=== PATIENT | female | born 1950 | race Caucasian/White ===

== ENCOUNTER → 2019-03-13 | Outpatient (CLI) | payer OTHER ==
[~2019-03-13] VITALS: Ht 165.1 cm; Wt 53.5 kg
[~2019-03-13] MED LIST: CALCIUM 500 +1 EACH PO; CLARITIN10 MG PO; COZAAR 50 MG TA50 M1 PO; FLONASE 0.05%50 MCG NASAL; FOSAMAX 70 MG T70 MG PO; MOBIC15 MG PO; SIMVASTATIN40 MG PO; SYNTHROID50 MCG PO; TRAZODONE HCL50 MG PO; VITAMIN D1000 UNI1 PO
[2019-03-13 08:57] VITALS: BP 151/83
[2019-03-13 08:58] LABS: HEMATOCRIT 37.7 % (37.0-47.0); HEMOGLOBIN 12.7 gm/dL (12.0-15.0); MCH 30.8 pg (26.0-34.0); MCHC 33.7 g/dL (28.0-37.0); MCV 91.5 fL (80.0-100.0); RBC 4.12 mil/uL (4.20-5.00); RDW 13.3 % (10.5-14.5); WBC 8.8 thou/uL (4.0-11.0)
[2019-03-13 09:07] LABS: CALCIUM 8.9 mg/dL (8.5-10.1); CREATININE 0.9 mg/dL (0.6-1.0); POTASSIUM 3.3 mmol/L (3.5-5.1)
--- NOTE | 2019-03-13 16:49 | EKG ---
[address] [address] ELECTROCARDIOGRAM REPORT Name: KALPESH ZAPATA Room #: REG SREEKANTH Parson#: [id number] Admission: 03/13/19 Attend Phys: Ruben Shaver Discharge: Date of : 52 Report #: [id number] THIS REPORT FOR: //name// [facility] Test Date: 2019-03-13 Test Time: 08:50:00 Pat Name: KALPESH ZAPATA Department: Room: Gender: F Cras: JESUS : 1950 Requested By: Ruben Shaver Order Number: [id number] MD: Ruben Shaver Measurements Intervals [place] Rate: 77 P: 81 MT: 137 QRS: 66 QRSD: 87 T: 53 QT: 384 QTc: 435 Interpretive Statements Sinus rhythm left atrial enlargement Nonspecific ST-T wave changes No previous ECG available for comparison Electronically Signed On 03-13-2019 16:49:40 CDT by Ruben Shaver [email or web address] <ELECTRONICALLY SIGNED> By: Ruben Shaver MD 03/13/19 1649 0850 0850 Ruben Shaver MD /ARACELIS
--- NOTE | 2019-03-14 10:53 | CATHLAB ---
[facility] [address] [place] [address] INVASIVE PROCEDURE REPORT Name: MICHELE ZAPATALIS Room #: REG Blank#: [id number] Admission: 03/13/19 Attend Phys: Ruben Cruz Discharge: Date of : 52 Report #: [id number] THIS REPORT FOR: //name// APPROVED REPORT Study performed: 03/13/2019 10:09:08 Patient Details Patient Status: Out-Patient Room #: The patient is a 68 year-old female Event Personnel Ruben Shaver Tool Clerk, PATTI ELLER Paschal, Ja'net RTR Scrub, Saúl Robles Monitor Procedures Performed Left Heart Cath w/or w/o Coronaries [id number] [facility], supervision of conscious sedation Indication Positive stress test, Chest pain Procedure Narrative The Right Groin^ was infiltrated with 1% Lidocaine subcutaneous anesthesia. A PINNACLE 4FR Sheath #[id number] sheath was inserted into the RFA^. Coronary angiography was performed using coronary diagnostic catheters. The right coronary system was accessed and visualized with a JR4 catheter. The left coronary system was accessed and visualized with a JL4 catheter. The left ventricle was accessed and visualized with a PIGTAIL catheter. Left ventricular/Aortic Valve gradient assessed via catheter pullback. Hemostasis was obtained with manual pressure following sheath removal without any complications. There was no hematoma. Intraoperative Conscious Sedation Sedation start time: 12.11 Case end Time: 33 Fluoro Time: 1.58 minutes Dose: DAP 664.00 cGycm2 93 mGy Contrast Type and Amount: Omnipaque 50 ml Coronary Angiography The patient's coronary anatomy is right dominant. [facility] [address] [place] [address] INVASIVE PROCEDURE REPORT Name: KALPESH ZAPATA Room #: REG CL Blank#: [id number] Admission: 03/13/19 Attend Phys: Ruben Cruz Discharge: Date of : 52 Report #: [id number] Diagnostic Cath Left Main Normal origin and caliber bifurcates that anterior descending left circumflex. Mild distal tapering and distal calcification noted but no obstructive lesions present LAD Moderate to small caliber type II vessel which courses in the anterior interventricular sulcus. It is quite tortuous in its course and has mild plaquing but no selective lesions noted within continues on terminating apex of the distal third being less than half a millimeter in diameter. Diagonal 1 Small to moderate caliber vessel coursing in the anterolateral wall tortuous in its course with mild plaquing in external calcifications noted but no obstructive lesions present Circumflex Moderate caliber vessel giving rise to an early small insignificant marginal branches and continues posteriorly in the AV groove giving rise to a small posterior wall branch and terminating is a co-dominant posterior wall marginal branch. All of these branches are highly tortuous in course and only mild plaquing is noted OM1 Small inSignificant caliber OM2 Small inignificant caliber L PDA Moderate caliber vessel with mild plaquing distally no high-grade lesions Right Coronary Moderate caliber vessel of normal origin giving rise to numerous RV and RA branches in his course. It courses to the crux of the heart rate small to moderate posterior descending artery is present. The distal right coronary consistent with small caliber vessel is insignificant caliber posterior left ventricular branch R PDA Moderate to small caliber vessel quite tortuous in its course as it proceeds in the posterior interventricular sulcus towards the apex. No high-grade lesions are noted Left Ventriculography Left Ventriculography was not performed. Hemodynamics The aortic pressure is 157/81 mmHg with a mean of 79 mmHg. The left ventricular pressure is 167/-5 mmHg with a mean of mmHg. The left ventricular end diastolic pressure is 21 mmHg. There was no gradient across the aortic valve upon pullback. Pullback from the left ventricle to the aorta revealed no gradient across the aortic valve. Conclusion 1. Mild coronary artery disease with minimal nonobstructive plaquing noted [facility] [address] [place] [address] INVASIVE PROCEDURE REPORT Name: KALPESH ZAPATA Room #: REG CECIL Parson#: [id number] Admission: 03/13/19 Attend Phys: Ruben Cruz Discharge: Date of : 52 Report #: [id number] 2. Coronary vessels highly tortuous 3. Abnormal hemodynamics with slightly elevated left ventricular end-diastolic pressure Recommendations Cardiac Risk Reduction Program <ELECTRONICALLY SIGNED> By: Ruben Shaver MD 03/14/19 105 51 51 Ruben Shaver MD /INF
== END | disposition home or self-care (01) ==
LOC: CATH 08:17
PROVIDERS: Internal Medicine
DX: R07.9 Chest pain, unspecified (principal); I25.10 Atherosclerotic heart disease of native coronary artery without angina pectoris; I10 Essential (primary) hypertension; E78.5 Hyperlipidemia, unspecified; M19.90 Unspecified osteoarthritis, unspecified site; M81.0 Age-related osteoporosis without current pathological fracture; M85.80 Other specified disorders of bone density and structure, unspecified site; Z87.19 Personal history of other diseases of the digestive system; Z98.51 Tubal ligation status; Z98.890 Other specified postprocedural states; Z79.899 Other long term (current) drug therapy; Z82.49 Family history of ischemic heart disease and other diseases of the circulatory system

== ENCOUNTER → 2019-05-10 | Outpatient (CLI) | payer OTHER ==
[~2019-05-10] VITALS: Ht 167.6 cm; Wt 52.2 kg
[~2019-05-10] MED LIST changes: +OMEPRAZOLE 20 M20 M1 PO
--- NOTE | 2019-05-10 17:14 | P ---
[facility] [place] [address] PROCEDURE REPORT Name: KALPESH ZAAPTA Geeta Room #: REG [facility]#: [id number] Admission: 05/10/19 Attend Phys: Marcus Dotson MD Discharge: Date of : 52 Report #: [id number] THIS REPORT FOR: //name// CC: Nicolasa Dotson DATE OF SERVICE: 05/10/2019 UPPER ENDOSCOPY REPORT BRIEF HISTORY: The patient is a 68-year-old woman with history of abdominal pain, nausea and she also describes early satiety. She has had weight loss. She also had a recent viral illness and describes increase symptoms of early satiety. PREOPERATIVE DIAGNOSES: Abdominal pain, nausea, early satiety and weight loss. POSTOPERATIVE DIAGNOSES: 1. Moderately severe erosive antral gastritis. 2. Small sliding type hiatus hernia. MEDICATIONS: Deep sedation with propofol per anesthesia. SPECIMEN: Biopsies of erosive gastritis. ESTIMATED BLOOD LOSS: 3 mL. PROCEDURE: EGD with biopsy. FINDINGS: Prior to propofol sedation, procedure of upper endoscopy was discussed with the patient as well as potential risks, benefits, and complications. She indicates she understands and desires to proceed. DESCRIPTION OF PROCEDURE: With the patient in left lateral decubitus position, the Olympus video endoscope was inserted in the cervical esophagus under direct vision without difficulty. Examination of this organ through its entire length revealed normal esophageal mucosa down the squamocolumnar junction. Squamocolumnar junction was inspected and noted to be unremarkable. There is no evidence of ulcers, erosions, esophagitis, strictures or mass lesions. Intermittently, a 2 cm sliding type hiatus hernia was seen. The mucosa in the hernia was unremarkable. The scope was then advanced into the stomach, was examined on end view as well as retroflexed views. Examination of proximal stomach revealed moderately severe erosive gastritis. There are multiple erosions, but none of were large enough to be considered a true ulcer. There was no evidence of bleeding. There was no endoscopic evidence of outlet [facility] [address] [place] [address] PROCEDURE REPORT Name: KALPESH ZAPATA Room #: REG [facility].#: [id number] Admission: 05/10/19 Attend Phys: Marcus Dotson MD Discharge: Date of : 52 Report #: [id number] obstruction. There were no retained solids or liquids in the stomach. Upon retroflexion, the small hiatus hernia was seen. No mass lesions were seen. No ulcers were seen in the proximal stomach. The pylorus was unremarkable. Duodenal bulb was unremarkable. Postbulbar duodenal sweep down to the third portion was unremarkable. At that point, the scope was slowly withdrawn and careful circumferential views were obtained. The patient tolerated the procedure well. In addition, biopsies were obtained of the gastritis. CONDITION OF THE PATIENT UPON DISCHARGE: Following procedure, the patient drowsy, arousable and conversant and will be discharged home when fully ambulatory. INSTRUCTIONS TO THE PATIENT AND FAMILY AT THE TIME OF DISCHARGE: The patient has had weight loss over the years, but more recently she has had increasing nausea, early satiety. Some of this may have been exacerbated by recent viral illness a month or 2 ago. She does have significant erosive changes of the antrum and body, which may be a factor. However, I do not see any ulcers. We will follow up on biopsies at this point in time. She reports the use of PPI has been helped with her abdominal pain. Since she reports she has had increasing early satiety and fullness, especially with eating, we will obtain a gastric emptying study for further evaluation. We will have her continue her PPI. She had been on meloxicam. We will have her stop meloxicam if possible. We will discuss further with the patient. She may use Tylenol as needed. In addition, the patient did have a recent CT angio of the abdomen. 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 I do not see evidence of ischemic disease on examination today. However, on this exam we were only able to examine the duodenum and not further down the small bowel, which problematic with regards to superior mesenteric artery narrowing. We will obtain a of the CT report for review. We will have her return for followup in the office. The patient reports that my associate, Dr. Novoa who did a colonoscopy in 2013. I cannot find a record of that examination. We will discuss further with the patient. The last colonoscopy I have on record is 2004. May consider a followup colonoscopy. <ELECTRONICALLY SIGNED> By: Marcus Dotson MD 05/10/19 1714 0755 0812 Marcus Dotson MD /nt
--- NOTE | 2019-05-14 16:06 | PATH ---
[facility] [address] [place] [address] PATHOLOGY RPT PROCEDURE Name: MICHELLE GOMEZ Room #: REG SREEKANTH Pasron#: [id number] Admission: 05/10/19 Date of : 52 Discharge: Report #: [id number] Path Case #: [id number] [facility] Accession Number: [id number] . 01 Material submitted: . stomach - BIOPSY OF GASTRITIS R/T ABD PAIN, NAUSEA, MELOXICAM MED . 01 Clinical history: . Preop DX: Abd pain and nausea, Meloxicam usage Postop DX: Gastritis, Sm. hiatal hernia r/t abd pain, nausea, meloxicam med. . 02 Diagnosis: Gastric mucosa, gastritis, endoscopic biopsy: - Moderate reactive gastropathy. - Negative for intestinal metaplasia or atrophy. - Negative for Helicobacter pylori (properly controlled immunohistochemical stain performed). (IUV/db; 05/14/2019) LBQ 05/14/2019 1149 Local . 02 Electronically signed: . Lilli Truong MD, Pathologist NPI- [id number] . 01 Gross description: . Received in formalin labeled "Mukesh Gomezlis, Bx of gastritis," are multiple segments of pale peter soft tissue measuring 1.1 x 0.8 x 0.2 cm in aggregate dimensions and ranging from 0.1 to 0.4 cm in maximum dimension. The specimen is submitted entirely in cassette A1. (DAC; 05/13/2019) XDC/XDC 05/13/2019 0922 Local . 02 Pathologist provided ICD-10: K31.9 . 02 CPT . 595439, N65103 Specimen Comment: A courtesy copy of this report has been sent to [phone], [phone] Specimen Comment: [phone] Specimen Comment: Report sent to and Performed at: [address] [id number] MD Ace Deshpande MD Phone: [phone] Performed at: 02 [place] [address] PATHOLOGY RPT PROCEDURE Name: MICHELLE GOMEZ Room #: REG CLArmida Parson#: [id number] Admission: 05/10/19 Date of : 52 Discharge: Report #: [id number] Path Case #: [id number] [facility] [address], [place], [place] [id number] MD Lilli Truong MD Phone: [phone]
== END | disposition home or self-care (01) ==
LOC: GI 06:26
DX: R10.9 Unspecified abdominal pain (principal); K31.9 Disease of stomach and duodenum, unspecified; K44.9 Diaphragmatic hernia without obstruction or gangrene; R11.0 Nausea; R63.4 Abnormal weight loss; I10 Essential (primary) hypertension; E78.5 Hyperlipidemia, unspecified; M19.90 Unspecified osteoarthritis, unspecified site; M85.80 Other specified disorders of bone density and structure, unspecified site; K21.9 Gastro-esophageal reflux disease without esophagitis; Z98.51 Tubal ligation status; Z98.890 Other specified postprocedural states; Z79.899 Other long term (current) drug therapy; Z88.8 Allergy status to other drugs, medicaments and biological substances
CPT/HCPCS: 62110; 62900

== ENCOUNTER → 2020-04-16 | Outpatient (CLI) | payer OTHER | LOC: SJCVC 10:36 | PROVIDERS: ATTEND Internal Medicine | DX: I25.10 Atherosclerotic heart disease of native coronary artery without angina pectoris (principal); I10 Essential (primary) hypertension; E78.5 Hyperlipidemia, unspecified; Z79.899 Other long term (current) drug therapy ==